=== PATIENT | female | born 1955 | race Caucasian/White ===

== ENCOUNTER 2016-06-04 13:44 | Emergency (ER) | payer BC ==
[~2016-06-04 13:44] MED LIST: 8 HOUR650 MG PO; ADVIL PO; C5; EFUDEX CREAM 5%40 GM; OXYCOD PO; PERCOCET1 TA4 PO; PROTOPIC0.1 %; TYLENOL ARTH650 MG PO; ULTRAM50 PO; VIMOVO 500-201 EACH PO; VITAMIN D1000 UNI1 PO; VITAMINS/HERBS; VOLT75 PO
[2016-11-11] MEDS ORDERED: LIPITOR40 PO (13:53)
[2016-11-11] MEDS ORDERED: ASAB PO (13:53)
[2016-11-11] MEDS ORDERED: COQ-10200 MG PO (13:54)
[2016-11-11] MEDS ORDERED: MOBIC15 MG PO (13:54)
[2016-11-11] MEDS ORDERED: PRIN5 PO (13:54)
[2016-11-11] MEDS ORDERED: PRILO PO (13:55)
[2016-11-11] MEDS ORDERED: NEUR300 PO (13:55)
[2016-11-11] MEDS ORDERED: VITE PO (13:56)
== END 2016-06-04 15:05 | disposition home or self-care (01) ==
LOC: ER 13:44
PROC: 0HQGXZZ Repair Left Hand Skin, External Approach (ICD-10-PCS; principal; 2016-06-04)
DX: S61.012A Laceration without foreign body of left thumb without damage to nail, initial encounter (principal); Z79.01 Long term (current) use of anticoagulants; Z79.899 Other long term (current) drug therapy
CPT/HCPCS: 99283; A9270-GY